=== PATIENT | male | born 1930 | race Caucasian/White ===

== ENCOUNTER 2017-05-23 02:36 | Inpatient (IN) | payer MEDICARE ==
[~2017-05-23] VITALS: Ht 175.3 cm; Wt 70.2 kg
[2017-05-23] VITALS (12 sets, daily range): BP systolic 145–224; BP diastolic 74–116; PULSE 67–92; RESP 16–19; TEMP 97.6–99.3; O2SAT 94–96
[~2017-05-23 02:36] MED LIST: BETHAMETHASONE; HYCOS PO; TAMS0.4C67 PO; breathing tx
[2017-05-23] MEDS ORDERED: METO25TA3 PO (03:18)
[2017-05-23] MEDS ORDERED: PHEN1SPR2 PO (03:18)
[2017-05-23] MEDS ORDERED: TAMS0.4C4 PO (03:18)
[2017-05-23] MEDS ORDERED: ASPI81CH6 CHEW (03:18)
[2017-05-23] MEDS ORDERED: PRED1 PO (03:18)
[2017-05-23] MEDS ORDERED: FINA5TAB2 PO (03:18)
[2017-05-23] MEDS ORDERED: TYLETAB34 PO (03:18)
[2017-05-23] MEDS ORDERED: FLUN25I EACH NARE (03:18)
[2017-05-23] MEDS ORDERED: SODIUM CHLORIDE 0.9% FLUSH 10 ML FLUSH IVF PRN (03:45)
[2017-05-23] MEDS ORDERED: LABETALOL HCL 100 MG/20 ML VIAL IV PUSH ONE (04:00)
[2017-05-23 04:11] LABS: BASOPHIL # 0.1 TH/MM3 (0-0.2); BASOPHIL % 0.7 % (0.0-2.0); EOSINOPHIL # 0.5 TH/MM3 (0-0.4); EOSINOPHIL % 5.5 % (0.0-4.0); HEMATOCRIT 41.2 % (39.0-51.0); HEMOGLOBIN 13.7 GM/DL (13.0-17.0); LYMPH % 16.6 % (9.0-44.0); LYMPHOCYTE # 1.5 TH/MM3 (1.0-4.8); MEAN CORPUSCULAR HEMOGLOBIN 28.3 PG (27.0-34.0); MEAN CORPUSCULAR HGB CONC 33.3 % (32.0-36.0); MEAN PLATELET VOLUME 7.1 FL (7.0-11.0); MONO % 8.5 % (0.0-8.0); MONOCYTE # 0.7 TH/MM3 (0-0.9); NEUT % 68.7 % (16.0-70.0); PLATELET COUNT 231 TH/MM3 (150-450); RED BLOOD COUNT 4.84 MIL/MM3 (4.50-5.90); RED CELL DISTRIBUTION WIDTH 16.1 % (11.6-17.2); WHITE BLOOD COUNT 8.7 TH/MM3 (4.0-11.0)
[2017-05-23 04:23] LABS: BICARBONATE 31.3 MEQ/L (21.0-32.0); BLOOD UREA NITROGEN 13 MG/DL (7-18); CALCIUM 8.4 MG/DL (8.5-10.1); CHLORIDE 104 MEQ/L (98-107); CREATININE 1.02 MG/DL (0.60-1.30); GLOMERULAR FILTRATION RATE 69 ML/MIN (>89); GLUCOSE,RANDOM 109 MG/DL (74-106); SODIUM (NA) 138 MEQ/L (136-145)
[2017-05-23 04:25] LABS: INTERNATIONAL NORMALIZED RATIO 1.1 RATIO; PROTHROMBIN TIME - PATIENT 10.7 SEC (9.8-11.6)
[2017-05-23 04:26] LABS: TROPONIN I LESS THAN 0.02 NG/ML (0.02-0.05)
--- NOTE | 2017-05-23 04:35 | PD ---
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 Patient was accepted in transfer of care by neurologist Dr. Vitale who recommended patient come to this facility to have ophthalmologic evaluation prior to onset of any anticoagulation therapy. Patient presents with symptoms beginning since Saturday morning. Patient here states that his initial visual disturbance has essentially resolved and his vision is back to his baseline although had. Vision loss like a shade on Saturday. Patient was seen by evp operations and was being referred to a retinal specialist when he was referred to the emergency department for further evaluation of symptoms. Patient complained of headache and dizziness. Patient with prior history of CVA. Patient with hypertension and dyslipidemia as well as hypothyroidism. Patient on no blood thinning agents except and aspirin. Patient is not taking his blood pressure medication for 2 days. Patient denies other concerns or complaints. PFSH Past Medical History Narrative Medical Polymyalgia rheumatica hypertension CVA; nursing notes reviewed Heart Rhythm Problems: No Cancer: Yes (SQUAMOUS CELL CA SCALP) Cardiac Catheterization: No Cardiovascular Problems: No (DENIES) High Cholesterol: No Congestive Heart Failure: No Cerebrovascular Accident: Yes Diabetes: No Diminished Hearing: No Glaucoma: No Genitourinary: Yes (BENIGN PROSTATIC HYPERTROPHY - DUE FOR SURGERY IN APRIL) Hepatitis: No Hiatal Hernia: No Hypertension: No Medical other: Yes (ARTHRITIS; SEVERE COUGH) Respiratory: Yes (abscess in lung) Thyroid Disease: No Tetanus Vaccination: Unknown Influenza Vaccination: No Past Surgical History Appendectomy: Yes Cardiac Surgery: Yes (AORTA REPAIR) Coronary Artery Bypass Graft: No Genitourinary Surgery: Yes (PROSTATE BIOPSY X 3) Thoracic Surgery: Yes (BRONCHOSCOPY) Social History Alcohol Use: No Tobacco Use: No Substance Use: No Allergies-Medications (Allergen,Severity, Reaction): Coded Allergies: levofloxacin (Unverified Adverse Reaction, Severe, 05/23/17) States not allergic to it but his joints tightened up on him so doesnt want to take again Reported Meds & Prescriptions Reported Meds & Active Scripts Active Reported Metoprolol Tartrate 25 Mg Tab 25 Mg PO BID Finasteride 5 Mg Tab 1 Mg PO DAILY Do not crush. Prednisone 1 Mg Tab 1 Mg PO BID Aspirin Low Dose (Aspirin) 81 Mg Chew 81 Mg CHEW DAILY Tylenol-Codeine #3 (Acetaminophen-Codeine) 300-30 mg Tab 1 Tab PO Q4H PRN Chloraseptic Max Alto (Phenol/Glycerin) 1.5 %-33 % Alto 2 Alto PO Q2HR PRN Flunisolide Nasal Alto (Flunisolide) 0.025 Mg/Act Naspr 2 Alto EACH NARE BID Tamsulosin (Tamsulosin HCl) 0.4 Mg Cap 0.4 Mg PO DAILY Review of Systems Except as stated in HPI: all other systems reviewed are Neg General / Constitutional: No: Fever, Chills Eyes: Positive: Visual changes, No: Diploplia HENT: Positive: Headaches, Vertigo, No: Neck Pain Cardiovascular: No: Chest Pain or Discomfort Respiratory: No: Shortness of Breath Gastrointestinal: No: Nausea, Vomiting, Abdominal Pain Musculoskeletal: No: Myalgias, Arthralgias, Weakness Skin: No Rash Neurologic: Positive: Dizziness, Headache, No: Weakness, Syncope, Focal Abnormalities, Coordination Problem, Ataxia, Change in Mentation, Slurred Speech , Paresthesia, Seizures Psychiatric: No: Anxiety Endocrine: No: Heat Intolerance Hematologic/Lymphatic: No: Easy Bruising Physical Exam Narrative GENERAL: Well-developed well-nourished male no acute distress or respiratory distress SKIN: Warm and dry. HEAD: Atraumatic. Normocephalic. EYES: Pupils equal and round. No scleral icterus. No injection or drainage. ENT: No nasal bleeding or discharge. Mucous membranes pink and moist. NECK: Trachea midline. No JVD. CARDIOVASCULAR: Regular rate and rhythm. RESPIRATORY: No accessory muscle use. Clear to auscultation. Breath sounds equal bilaterally. GASTROINTESTINAL: Abdomen soft, non-tender, nondistended. Hepatic and splenic margins not palpable. MUSCULOSKELETAL: Extremities without clubbing, cyanosis, or edema. No obvious deformities. NEUROLOGICAL: Awake and alert. No obvious cranial nerve deficits. Motor grossly within normal limits. Five out of 5 muscle strength in the arms and legs. No limb ataxia no pronator drift. Normal speech. PSYCHIATRIC: Appropriate mood and affect; insight and judgment normal. Data Data Last Documented VS Vital Signs Date Time Temp Pulse Resp B/P (MAP) Pulse Ox O2 Delivery O2 Flow Rate FiO2 2/8/18 04:00 84 16 218/99 (138) 95 Room Air 05/23/17 02:56 98.9 Orders Orders Electrocardiogram (05/23/17 03:41) Prothrombin Time / Inr (Pt) (05/23/17 03:41) Act Partial Throm Time (Ptt) (05/23/17 03:41) Complete Blood Count With Diff (05/23/17 03:41) Basic Metabolic Panel (Bmp) (05/23/17 03:41) Troponin I (05/23/17 03:41) Ua Includes Microscopic (05/23/17 03:41) Ecg Monitoring (05/23/17 03:41) Iv Access Insert/Monitor (05/23/17 03:41) Oximetry (05/23/17 03:41) Sodium Chloride 0.9% Flush (Ns Flush) (05/23/17 03:45) Labetalol Inj (Trandate Inj) (05/23/17 04:00) Admit Order (Ed Use Only) (05/23/17 ) Court Stenographer / Telemetry PIERCE.Q8H (05/23/17 03:59) Diet Heart Healthy (05/23/17 Breakfast) Activity Oob With Assistance (05/23/17 03:59) Notify Dr: Other (05/23/17 03:59) Labs Laboratory Tests Test 05/23/17 03:55 White Blood Count 8.7 TH/MM3 Red Blood Count 4.84 MIL/MM3 Hemoglobin 13.7 GM/DL Hematocrit 41.2 % Mean Corpuscular Volume 85.0 FL Mean Corpuscular Hemoglobin 28.3 PG Mean Corpuscular Hemoglobin Concent 33.3 % Red Cell Distribution Width 16.1 % Platelet Count 231 TH/MM3 Mean Platelet Volume 7.1 FL Neutrophils (%) (Auto) 68.7 % Lymphocytes (%) (Auto) 16.6 % Monocytes (%) (Auto) 8.5 % Eosinophils (%) (Auto) 5.5 % Basophils (%) (Auto) 0.7 % Neutrophils # (Auto) 6.0 TH/MM3 Lymphocytes # (Auto) 1.5 TH/MM3 Monocytes # (Auto) 0.7 TH/MM3 Eosinophils # (Auto) 0.5 TH/MM3 Basophils # (Auto) 0.1 TH/MM3 CBC Comment DIFF FINAL Differential Comment Prothrombin Time 10.7 SEC Prothromb Time International Ratio 1.1 RATIO Activated Partial Thromboplast Time 26.8 SEC Blood Urea Nitrogen 13 MG/DL Creatinine 1.02 MG/DL Random Glucose 109 MG/DL Calcium Level 8.4 MG/DL Sodium Level 138 MEQ/L Potassium Level 3.8 MEQ/L Chloride Level 104 MEQ/L Carbon Dioxide Level 31.3 MEQ/L Anion Gap 3 MEQ/L Estimat Glomerular Filtration Rate 69 ML/MIN Troponin I LESS THAN 0.02 NG/ML MDM Medical Decision Making Medical Screen Exam Complete: Yes Emergency Medical Condition: Yes Medical Record Reviewed: Yes Interpretation(s) EKG normal sinus rhythm rate 73 incomplete right bundle branch block no acute ST elevation injury pattern or ectopy noted Differential Diagnosis CVA, carotid stenosis, retinal hemorrhage, uncontrolled hypertension Narrative Course Review of medical records indicates the patient underwent CT brain noncontrast with impression areas of lucency in the bilateral occipital lobes left greater than right likely subacute infarcts in the DOPE EDGER distribution no hemorrhage or mass-effect remote right parietal cortical infarct remote right cerebellar infarct no shift or hydrocephalus this is from 9:40 PM 05/22/17 from [facility] Patient's case was discussed with on-call neurologist who recommended a.m. ophthalmology consult neurology consult MRI and MRA of the brain and carotids as well as blood pressure control to keep systolic pressure approximately 1 80 mmHg no anticoagulation administered until patient evaluated by evp operations for possible retinal hemorrhage and admitted to medicine; patient's case was discussed with on-call [facility] of healthcare physician Dr. Greer and neurologist Dr. Vitale's recommendation for ophthalmology consult neurology consult MRI and MRI of the brain and carotids as well as blood pressure control and no anticoagulation until patient has been evaluated by evp operations this information was shared to Dr. Greer the admitting physician who requests patient be admitted to Dr. Clark and reports that he will enter the orders as recommended by neurologist. Physician Communication Physician Communication Patient's case discussed with on-call neurologist Dr. Vitale who requests patient be admitted to medicine service with consult to neurology and ophthalmology with MR studies in the a.m. no anticoagulation until patient is evaluated by ophthalmology; patient's case discussed with on-call physician Dr. Greer who requests patient to be admitted to Dr. Clark is aware of Dr. Vitale/neurologist recommendations for ongoing management of the patient at time of admission --requested ED to place transition orders and will order all further patient management orders/consults. Diagnosis Primary Impression: CVA (cerebral vascular accident) Additional Impressions: Retinal hemorrhage Hypertension Admitting Information Admitting Physician Requests: Admit Olesya Rockwell MD May 23, 2017 04:35
[2017-05-23] MEDS: ACETAMINOPHEN 325 MG TAB PO PRN (08:26)
[2017-05-23] MEDS ORDERED: PRED2.5T PO (08:58)
--- NOTE | 2017-05-23 09:08 | HHI.HP ---
HPI Service [facility] Hospitalists Primary Care Physician Mir Rivero MD Admission Diagnosis CVA; retinal hemorhage; htn Chief Complaint: visual loss/headache. Travel History International Travel<30 Days: No Contact w/Intl Traveler <30 Da: No Traveled to Known Affected Are: No History of Present Illness Pt is 86 yo with hx thoracic aortic dissection, htn, bph who presented to [place] ED and transferred to [facility]. Pt and family say he has had blurry/"scummy" vision bilaterally for months but yesterday morning he was unable to see much as both eyes appeared to be in a "fog". He went to [facility] eye doctor in [place]. They usually see Dr Fritz but saw who they think was Dr Landers. The pt/family say she felt he had a left retinal hemorrhage and was referred to see Dr Dyer. But he was having severe h/a and seen in urgent care who referred him to ED. In [place] after CT head there was a concern of subacute cva in posterior cerebral art. Due to the possible retinal hemorrhage he was accepted in transfer here by neurology with request of optho consult. Pt still has headache but vision is much improved. no focal ext weekness. Says he had a cva 3 yrs ago unclear mechanism. takes 1/ 2 325mg asa daily. Review of Systems Other headache visual disturbance Past Family Social History Past Medical History thoracic aortic dissection. open repair Vigneshll 2012 acute cva 2012 mediastinoscopy/bronch 2007. severe pneumonia 6weeks abx. bph htn inguinal hernia surgery skin ca removal appe PMR chronic prednisone. Reported Medications Prednisone 2.5 Mg Tab 2.5 Mg PO DAILY Metoprolol Tartrate 25 Mg Tab 50 Mg PO BID Finasteride 5 Mg Tab 1 Mg PO DAILY Do not crush. Tamsulosin (Tamsulosin HCl) 0.4 Mg Cap 0.4 Mg PO DAILY asa 325mg 1/2 daily. Allergies: Coded Allergies: levofloxacin (Unverified Adverse Reaction, Severe, 05/23/17) States not allergic to it but his joints tightened up on him so doesnt want to take again Family History nc Social History quit tob 1959 Physical Exam Vital Signs nad pleasant oriented cn 2-12 grossly intact heart reg no carotid bruit lung cta abd s/nt ext no edema Vital Signs Date Time Temp Pulse Resp B/P (MAP) Pulse Ox O2 Delivery O2 Flow Rate FiO2 05/23/17 06:40 05/23/17 05:00 84 16 165/74 (104) 96 Room Air 05/23/17 04:30 74 16 182/88 (119) 95 Room Air 05/23/17 04:15 84 16 171/89 (116) 95 Room Air 05/23/17 04:00 84 16 218/99 (138) 95 Room Air 05/23/17 03:30 85 16 221/112 (148) 95 Room Air 05/23/17 03:01 224/102 (142) 213/96 (135) 05/23/17 03:00 96 Room Air 05/23/17 02:56 98.9 90 16 224/102 (142) 95 Laboratory Laboratory Tests Test 05/23/17 03:55 White Blood Count 8.7 Red Blood Count 4.84 Hemoglobin 13.7 Hematocrit 41.2 Mean Corpuscular Volume 85.0 Mean Corpuscular Hemoglobin 28.3 Mean Corpuscular Hemoglobin Concent 33.3 Red Cell Distribution Width 16.1 Platelet Count 231 Mean Platelet Volume 7.1 Neutrophils (%) (Auto) 68.7 Lymphocytes (%) (Auto) 16.6 Monocytes (%) (Auto) 8.5 Eosinophils (%) (Auto) 5.5 Basophils (%) (Auto) 0.7 Neutrophils # (Auto) 6.0 Lymphocytes # (Auto) 1.5 Monocytes # (Auto) 0.7 Eosinophils # (Auto) 0.5 Basophils # (Auto) 0.1 CBC Comment DIFF FINAL Differential Comment Prothrombin Time 10.7 Prothromb Time International Ratio 1.1 Activated Partial Thromboplast Time 26.8 Blood Urea Nitrogen 13 Creatinine 1.02 Random Glucose 109 Calcium Level 8.4 Sodium Level 138 Potassium Level 3.8 Chloride Level 104 Carbon Dioxide Level 31.3 Anion Gap 3 Estimat Glomerular Filtration Rate 69 Troponin I LESS THAN 0.02 Result Diagram: 05/23/1735405/23/17354 Caprini VTE Risk Assessment Caprini VTE Risk Assessment: Mod/High Risk (score >= 2) Caprini Risk Assessment Model Point Value = 1 Point Value = 2 Point Value = 3 Point Value = 5 Age 41-60 Minor surgery BMI > 25 kg/m2 Swollen legs Varicose veins or History of unexplained or recurrent spontaneous Oral contraceptives or hormone replacement Sepsis (< 1 month) Serious lung disease, including pneumonia (< 1 month) Abnormal pulmonary function Acute myocardial infarction Congestive heart failure (< 1 month) History of inflammatory bowel disease Medical patient at bed rest Age 61-74 Arthroscopic surgery Major open surgery (> 45 min) Laparoscopic surgery (> 45 min) Malignancy Confined to bed (> 72 hours) Immobilizing plaster cast Central venous access Age >= 75 History of VTE Family history of VTE Factor V Leiden Prothrombin [id number] Lupus anticoagulant Anticardiolipin antibodies Elevated serum homocysteine Heparin-induced thrombocytopenia Other congenital or acquired thrombophilia Stroke (< 1 month) Elective arthroplasty Hip, pelvis, or leg fracture Acute spinal cord injury (< 1 month) Prophylaxis Regimen Total Risk Factor Score Risk Level Prophylaxis Regimen 0-1 Low Early ambulation 2 Moderate Order ONE of the following: *Sequential Compression Device (SCD) *Heparin 5000 units SQ BID 3-4 Higher Order ONE of the following medications: *Heparin 5000 units SQ TID *Enoxaparin/Lovenox 40 mg SQ daily (WT < 150 kg, CrCl > 30 mL/min) *Enoxaparin/Lovenox 30 mg SQ daily (WT < 150 kg, CrCl > 10-29 mL/min) *Enoxaparin/Lovenox 30 mg SQ BID (WT < 150 kg, CrCl > 30 mL/min) AND/OR *Sequential Compression Device (SCD) 5 or more Highest Order ONE of the following medications: *Heparin 5000 units SQ TID (Preferred with Epidurals) *Enoxaparin/Lovenox 40 mg SQ daily (WT < 150 kg, CrCl > 30 mL/min) *Enoxaparin/Lovenox 30 mg SQ daily (WT < 150 kg, CrCl > 10-29 mL/min) *Enoxaparin/Lovenox 30 mg SQ BID (WT < 150 kg, CrCl > 30 mL/min) AND *Sequential Compression Device (SCD) Assessment and Plan Problem List: (1) CVA (cerebral vascular accident) ICD Codes: I63.9 - Cerebral infarction, unspecified Status: Acute Plan: 1. Presents with severe h/a and bilateral visual disturbances for weeks. Initial eval outside hospital concerned for subacute post cerebral art cva and retinal hemorrhage. 2. htn 3. Aortic dissection/repair in the past 4. bph 5. PMR on chronic steroids Pt was transferred/accepted by neurology from [place] ED consult neurology and ophthal. mri/a brain/carotids telemetry. echo dvt prophylaxis antiplts/anticoagulation per neurology. pt eval (2) Retinal hemorrhage ICD Codes: H35.60 - Retinal hemorrhage, unspecified eye Status: Acute (3) Hypertension ICD Codes: I10 - Essential (primary) hypertension Status: Acute Physician Certification 2 Midnight Certification Type: Admission for Inpatient Services Order for Inpatient Services 3The services are ordered in accordance with Medicare regulations or non- Medicare payer requirements, as applicable. In the case of services not specified as inpatient-only, they are appropriately provided as inpatient services in accordance with the 2-midnight benchmark. Estimated LOS (days): 3 3 days is the estimated time the patient will need to remain in the hospital, assuming treatment plan goals are met and no additional complications. Post-Hospital Plan: Home Gordo Clark MD May 23, 2017 09:08
[2017-05-23] MEDS ORDERED: PILL SPLITTER OTHER PRN (09:30)
[2017-05-23 09:53] LABS: BILIRUBIN, URINE NEG (NEG); BLOOD, URINE NEG (NEG); GLUCOSE,URINE NEG (NEG); KETONE, URINE NEG (NEG); MUCUS URINE FEW /lpf (OCC); NITRITE,URINE NEG (NEG); URINE COLOR YELLOW (YELLW/STRAW); URINE LEUKOCYTE ESTERASE NEG (NEG)
[2017-05-23] MEDS ORDERED: ACETAMINOPHEN/CODEINE 300 MG/30 MG TAB PO PRN (10:30)
[2017-05-23] MEDS ORDERED: LORazepam 0.5 MG TAB PO ONE (10:30)
[2017-05-23] MEDS ORDERED: METOPROLOL TARTRATE 50 MG TAB PO ONE (10:30)
[2017-05-23] MEDS: predniSONE 5 MG TAB PO SCH (10:53)
[2017-05-23] MEDS: TAMSULOSIN HCL 0.4 MG CAP PO SCH (10:53)
[2017-05-23] MEDS: FINASTERIDE 5 MG TAB PO SCH (10:53)
[2017-05-23] MEDS ORDERED: GADODIAMIDE PF 287 MG/ML 20 ML VIAL (for RAD MRI) IVCONTRAST ONE (12:31)
--- NOTE | 2017-05-23 12:34 | RADRPT ---
EXAM DATE/TIME: 05/23/2017 12:05 [facility] COMPARISON: No previous studies available for comparison. INDICATIONS : Stroke. Headache and blurred vision. MEDICAL HISTORY : Hypertension. SURGICAL HISTORY : Abdominal aortic aneurysm repair. Hernia repair. ENCOUNTER: Initial ACUITY: 2 day PAIN SCORE: 6/10 LOCATION: Head. Please note a normal MRA of the brain does not entirely exclude the possibility of a small aneurysm, nor the possibility of distal intracranial vessel disease. TECHNIQUE: 3D time of flight MRA was performed. Source images, multiplanar STS MIP, and 3D volume MIP reconstru ctions were reviewed. FINDINGS: There is excellent visualization of the major intracranial arteries out to the second-order branch ve ssels. There is no evidence for aneurysm, vessel truncation or stenosis, and no evidence for vascula r malformation. CONCLUSION: Normal examination. Jay Disla MD on May 23, 2017 at 12:29 Board Certified Radiologist. This report was verified electronically.
--- NOTE | 2017-05-23 12:44 | RADRPT ---
EXAM DATE/TIME: 05/23/2017 12:05 [facility] COMPARISON: MRA BRAIN W/O CONTRAST, May 23, 2017, 12:05. INDICATIONS : CVA. Blurred vision and headache. MEDICAL HISTORY : Hypertension. SURGICAL HISTORY : Abdominal aortic aneurysm repair. Hernia repair. ENCOUNTER: Initial ACUITY: 1 day PAIN SCORE: 5/10 LOCATION: Head. TECHNIQUE: Multiplanar, multisequence MRI of the brain was performed without contrast. FINDINGS: There are patchy areas of restricted diffusion involving the posterior left temporal and left occipit al region consistent with subacute infarctions. There are small areas of encephalomalacia in the high convexity right parietal region, in the right occipital region and in the right cerebellar hemispher e consistent with old insults. There is patchy mild T2 prolongation in the periventricular and subcor tical white matter. No evidence of intracranial hemorrhage or mass. There is mucosal sinus disease pr esent in ethmoid sinuses. CONCLUSION: Areas of subacute left SERVICE STATION [employer]END[employer] territory infarction. Old infarctions elsewhere. Jay Disla MD on May 23, 2017 at 12:37 Board Certified Radiologist. This report was verified electronically.
--- NOTE | 2017-05-23 12:48 | RADRPT ---
EXAM DATE/TIME: 05/23/2017 12:05 [facility] COMPARISON: No previous studies available for comparison. INDICATIONS : Stroke. Blurred vision and headache. CONTRAST: 20 cc Omniscan (gadodiamide) IV MEDICAL HISTORY : Hypertension. SURGICAL HISTORY : Abdominal aortic aneurysm repair. Hernia repair. ENCOUNTER: Initial ACUITY: 2 day PAIN SCORE: 5/10 LOCATION: Head. Percent stenosis is calculated using the diameter of the stenotic region over the diameter of the nor mal distal internal carotid artery. TECHNIQUE: Bolus infused MRA of the extracranial circulation was performed using a neurovascular coil. Post pro cessing was performed including rotating subvolume maximum intensity projections of each carotid lorri ry, rotating full volume maximum intensity projections of both carotid arteries, sagittal and coronal sliding thin slab reformations of each carotid artery, and left oblique sliding thin slab reformatio n through the aortic arch to include the origin of the arch branch vessels. FINDINGS: AORTIC ARCH: There is a three vessel origin of the great vessels from the aorta. No evidence of ostial narrowing. RIGHT CAROTID: The common carotid artery is intact. The carotid bulb has a normal configuration without ulceration or narrowing. The internal carotid artery lumen is smooth without stenosis. The external carotid ar eileen is intact. LEFT CAROTID: The common carotid artery is intact. The carotid bulb has a normal configuration without ulceration or narrowing. The internal carotid artery lumen is smooth without stenosis. The external carotid ar eileen is intact. VERTEBRALS: The vertebral arteries have a symmetric diameter. No stenotic lesions are seen. CONCLUSION: Normal examination. Jay Disla MD on May 23, 2017 at 12:44 Board Certified Radiologist. This report was verified electronically.
[2017-05-23] MEDS ORDERED: cloNIDine HCL 0.1 MG TAB PO PRN (13:15)
[2017-05-23] MEDS ORDERED: ENALAPRILAT 1.25 MG/ML VIAL IV PUSH PRN (16:30)
--- NOTE | 2017-05-23 18:01 | ECHRPT ---
Indication: CVA/TIA CONCLUSIONS The left ventricular systolic function is low normal with an estimated ejection fraction in the rang e of 50- 55%. Wall thickness is measured at the upper limits of normal. Normal left ventricular size. The left atrial size is mildly dilated. Mild aortic valve regurgitation. There is mild tricuspid valve regurgitation. The estimated pulmonary arterial pressure is 38.9 mmHg. BP: 165 / 74 HR: 84 Rhythm: Sinus MEASUREMENTS (Male / Female) Normal Values Technical Quality:Fair 2D ECHO LV Diastolic Diameter PLAX 5.0 cm 4.2 - 5.9 / 3.9 - 5.3 cm LV Systolic Diameter PLAX 3.9 cm IVS Diastolic Thickness 1.1 cm 0.6 - 1.0 / 0.6 - 0.9 cm LVPW Diastolic Thickness 1.1 cm 0.6 - 1.0 / 0.6 - 0.9 cm LV Relative Wall Thickness 0.4 LVOT Diameter 2.3 cm M-MODE Aortic Root Diameter MM 3.4 cm LA Systolic Diameter MM 4.3 cm LA Ao Ratio MM 1.3 AV Cusp Separation MM 2.3 cm DOPPLER AV Peak Velocity 115.0 cm/s AV Peak Gradient 5.3 mmHg AI Peak Velocity 291.5 cm/s AI Peak Gradient 34.0 mmHg AI Pressure Half Time 820.0 ms LVOT Peak Velocity 97.7 cm/s LVOT Peak Gradient 3.8 mmHg AV Area Cont Eq pk 3.5 cm MR Peak Velocity 490.0 cm/s MR Peak Gradient 96.0 mmHg Mitral E Point Velocity 53.8 cm/s Mitral A Point Velocity 49.9 cm/s Mitral E to A Ratio 1.1 LV E' Lateral Velocity 8.8 cm/s Mitral E to LV E' Lateral Ratio 6.1 LV E' Septal Velocity 8.1 cm/s Mitral E to LV E' Septal Ratio 6.7 TR Peak Velocity 269.0 cm/s TR Peak Gradient 28.9 mmHg Right Atrial Pressure 10.0 mmHg Pulmonary Artery Systolic Pressu 38.9 mmHg Right Ventricular Systolic Press 38.9 mmHg PV Peak Velocity 143.0 cm/s PV Peak Gradient 8.2 mmHg FINDINGS LEFT VENTRICLE The left ventricular systolic function is low normal with an estimated ejection fraction in the rang e of 50- 55%. Wall thickness is measured at the upper limits of normal. Normal left ventricular size. RIGHT VENTRICLE Normal right ventricular size and systolic function. LEFT ATRIUM The left atrial size is mildly dilated. RIGHT ATRIUM The right atrial size is normal. ATRIAL SEPTUM Normal atrial septal thickness without atrial level shunting by limited color doppler interrogation. AORTA The aortic root and proximal ascending aorta are normal in size on limited imaging. MITRAL VALVE Structurally normal mitral valve. No mitral valve stenosis or regurgitation. AORTIC VALVE Mild aortic valve regurgitation. TRICUSPID VALVE There is mild tricuspid valve regurgitation. The estimated pulmonary arterial pressure is 38.9 mmHg. PULMONARY VALVE No pulmonary valve regurgitation or stenosis. VESSELS The inferior vena cava is normal in size. PERICARDIUM No pericardial effusion. Maurilio Aguiar MD, FACC (Electronically Signed) Final Date:23 May 2017 18:00
--- NOTE | 2017-05-23 20:27 | EKG ---
Date Performed: 05/23/2017 Time Performed: 04:04:48 PTAGE: 86 years EKG: Sinus rhythm INCOMPLETE RIGHT BUNDLE BRANCH BLOCK BORDERLINE ECG PREVIOUS TRACING : 04/22/2012 04.06 Since the prior tracing, there has been no significant bell DOCTOR: Guanakito Rahman Interpretating Date/Time 05/23/2017 20:21:06
[2017-05-23] MEDS: METOPROLOL TARTRATE 50 MG TAB PO SCH (21:05)
[2017-05-24] VITALS: BP 153/70; PULSE 68; PULSE 71; RESP 20; TEMP 97.6; O2SAT 96
[2017-05-24 03:32] VITALS: BP 140/73; PULSE 75; RESP 18; TEMP 98.1; O2SAT 94
[2017-05-24] MEDS: ACETAMINOPHEN 325 MG TAB PO PRN (03:35)
[2017-05-24 08:00] VITALS: BP 169/97; PULSE 58; PULSE 73; RESP 20; TEMP 97.5; O2SAT 94
--- NOTE | 2017-05-24 08:18 | MB ---
cc: MODESTA WOODS M.D. DATE OF CONSULTATION 05/23/2017 REASON FOR CONSULTATION Stroke HISTORY OF PRESENT ILLNESS Mr. Parra is an 86-year man who noted difficulty with vision yesterday in both eyes he had blurred vision. He states actually two days ago he began having symptoms such as this. He saw ophthalmology as an outpatient and was found to have a retinal hemorrhage on the left side. He was hospitalized at [facility] yesterday and was in the ER because of increasing blurred vision and on CT scan thought he had an occipital stroke and therefore transferred to [facility] for neurological evaluation. PAST MEDICAL HISTORY He has a history of: 1. 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 A stroke in 2012. 3. Mediastinoscopy and bronchoscopy 2007 4. Pneumonia 5. BPH 6. Hypertension 7. Inguinal hernia surgery 8. Skin cancer removal 9. Appendectomy 10. PMR for which he takes prednisone MEDICINES AT HOME 1. Prednisone 2. Aspirin half a tablet a day 3. Tamsulosin 4. Finasteride 5. Metoprolol NEUROLOGIC EXAMINATION Blood pressure is 198/116, pulse is 84, respiratory rate is 18, temperature 97 degrees. Higher cortical functions are normal. Cranial nerve examination, he has difficulty seeing off to the right side, right hemianopsia. Pupils are equal and reactive. The extraocular movements are intact. There is no facial droop. Motor exam 5/5 strength. There is no drift. Reflexes symmetric. MRI of the brain shows a stroke in the left [employer] territory which appears to be subacute. He has areas of old stroke in the right parietal area, right occipital area and diffusion images show diffusion restriction left temporal and left occipital region consistent with acute showed no hemorrhage. MRA of the head is normal. MRA of the neck is normal. LABORATORY DATA White count is 8700, hemoglobin 13.7, hematocrit 41.2%, platelet count 231,000. Sodium is 138, potassium 3.8, chloride 104, CO2 31, BUN is 13, creatinine 1.92, GFR 69, PT 10.7, INR 1.1, APTT was 6.8. IMPRESSION 1. Left [employer] stroke. 2. Possible retinal hemorrhage by ophthalmologic exam. RECOMMENDATIONS Would hold off any antiplatelets presently until ophthalmology sees the patient. Once he is cleared, consider Plavix 75 mg daily if okay with ophthalmology. Also check echocardiogram. Monitor cardiac telemetry, rule out atrial fibrillation. We will also check a lipid panel. MD ANTONELLA Bo/KAROLINA /4:45 PM /7:55 AM
[2017-05-24] MEDS: predniSONE 5 MG TAB PO SCH (08:41)
[2017-05-24] MEDS: FINASTERIDE 5 MG TAB PO SCH (08:42)
[2017-05-24] MEDS: METOPROLOL TARTRATE 50 MG TAB PO SCH (08:42)
[2017-05-24] MEDS: TAMSULOSIN HCL 0.4 MG CAP PO SCH (08:42)
--- NOTE | 2017-05-24 09:10 | HHI.PR ---
Subjective Remarks doing much better. ambulating. Objective Vitals heart reg lung cta abd s/nt ext no edema Vital Signs Date Time Temp Pulse Resp B/P (MAP) Pulse Ox O2 Delivery O2 Flow Rate FiO2 05/24/17 08:00 97.5 73 20 169/97 (121) 94 05/24/17 07:15 Room Air 05/24/17 03:32 98.1 75 18 140/73 (95) 94 05/24/17 00:00 71 05/24/17 00:00 Room Air 05/24/17 00:00 97.6 68 20 153/70 (97) 96 05/23/17 20:00 77 05/23/17 20:00 99.0 80 19 163/79 (107) 94 05/23/17 20:00 Room Air 05/23/17 16:15 67 145/100 (115) 05/23/17 12:00 97.6 84 18 198/116 (143) 94 Result Diagram: 05/23/17 0355 05/23/17 0355 A/P Problem List: (1) CVA (cerebral vascular accident) ICD Codes: I63.9 - Cerebral infarction, unspecified Status: Acute Plan: 1. Presents with severe h/a and bilateral visual disturbances for weeks. Initial eval outside hospital concerned for subacute post cerebral art cva and retinal hemorrhage. mri/a brain 05/23 confirms left post cerebral art cva. subacute 2. htn 3. Aortic dissection/repair in the past 4. bph 5. PMR on chronic steroids Pt was transferred/accepted by neurology from [place] ED consulted neurology and ophthal. echo noted. no thrombus cont tele to r/o arrhythmia await ophthal. reccs for neurology to decide if antiplts can be used. once decisions made on antiplt then pt will be discharged. addendum; Ophthal says resolving vitreous hemorrhage. ok for plavix spoke with Dr Saleem. echo ok and no afib on tele. he is ok with stop asa and start plavix and f/u office 2 weeks. pt and family ok with d/c now. f/u retina doc Dr Dyer. (2) Retinal hemorrhage ICD Codes: H35.60 - Retinal hemorrhage, unspecified eye Status: Acute (3) Hypertension ICD Codes: I10 - Essential (primary) hypertension Status: Acute Problem Qualifiers (1) CVA (cerebral vascular accident): Qualified Codes: I63.9 - Cerebral infarction, unspecified Gordo Clark MD May 24, 2017 09:10
--- NOTE | 2017-05-24 10:03 | PD.CONS ---
History of Present Illness Service Ophthalmology Consult Requested By Reason for Consult retinal hemorrhage left eye Primary Care Physician Mir Rivero MD Diagnoses: History of Present Illness 86 yo M with h/o thoracic aortic dissection, HTN who had decreased vision in his left eye 3 days ago. Patient is a poor historian - most of the history was taken from outside ophthalmology notes and hospital records. He woke up on 05/21 and couldn't see out of his left eye. 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 Sanchez. She did a dilated exam and saw vitreous/retinal hemorrhage of unknown etiology. Her plan was to send him to see a Retina specialist (Dr. Dyer) in the next 1-2 weeks to evaluate the hemorrhage in his left eye. Later that day he started to have a severe headache and went to an urgent care who sent him to [facility] ED. CT Head showed concern of subacute CVA in posterior cerebral artery. They transferred him to [facility] due to the concern for the CVA/retinal hemorrhage. Pt states the vision in his left eye has improved significantly. Past ocular history significant for cataract surgery OS, cataract OD, ocular hypertension. Past Family Social History Allergies: Coded Allergies: levofloxacin (Unverified Adverse Reaction, Severe, 05/23/17) States not allergic to it but his joints tightened up on him so doesnt want to take again Physical Exam Vital Signs Vital Signs Date Time Temp Pulse Resp B/P (MAP) Pulse Ox O2 Delivery O2 Flow Rate FiO2 05/24/17 08:00 97.5 73 20 169/97 (121) 94 05/24/17 07:15 Room Air 05/24/17 03:32 98.1 75 18 140/73 (95) 94 05/24/17 00:00 71 05/24/17 00:00 Room Air 05/24/17 00:00 97.6 68 20 153/70 (97) 96 05/23/17 20:00 77 05/23/17 20:00 99.0 80 19 163/79 (107) 94 05/23/17 20:00 Room Air 05/23/17 16:15 67 145/100 (115) 05/23/17 12:00 97.6 84 18 198/116 (143) 94 Physical Exam Va cc at near OD 20/70, OS 20/40 EOM full OU, no diplopia CVF full OU Pupils 2-1 no APD OU IOP normal to palpation OU Anterior exam OD - normal eyelid, C/S W&Q, K clear, AC deep, pupil round, +NS OS - normal eyelid, C/S W&Q, K clear, AC deep, pupil round, PCIOL Dilated exam OD - ON s/p/f, ves normal, vit clear, retina flat OS - ON s/p/f, ves normal, resolving vit heme, retina flat Result Diagram: 05/23/1735405/23/17354 Assessment and Plan Problem List: (1) Vitreous hemorrhage of left eye ICD Codes: H43.12 - Vitreous hemorrhage, left eye Plan: Resolving. Ok to discharge and follow up with Retina as scheduled (Dr. Dyer). No contraindications to starting Plavix. Chasity Russo MD May 24, 2017 10:03
[2017-05-24 12:00] VITALS: BP 117/64; PULSE 62; RESP 18; TEMP 97.5; O2SAT 92
[2017-05-24] MEDS ORDERED: PLAV75TA29 PO (13:48)
[2017-05-24] MEDS ORDERED: ASPI-516 CHEW (13:48)
--- NOTE | 2017-05-24 13:58 | HHI.DCPOC ---
Discharge Care Plan Diagnosis: (1) Retinal hemorrhage (2) Hypertension (3) CVA (cerebral vascular accident) (4) Vitreous hemorrhage of left eye Goals to Promote Your Health * To prevent worsening of your condition and complications * To maintain your health at the optimal level Directions to Meet Your Goals Take your medications as prescribed Follow your dietary instruction Follow activity as directed Keep your appointments as scheduled Take your immunizations and boosters as scheduled If your symptoms worsen call your PCP, if no PCP go to Urgent Care Center or Emergency Room Smoking is Dangerous to Your Health. Avoid second hand smoke Call the 24-hour hour crisis hotline for domestic abuse at Jillian Walden May 24, 2017 13:58
[2017-05-24 15:06] VITALS: PULSE 62
== END 2017-05-24 15:48 | disposition home or self-care (01) | DRG 66 ==
LOC: NEPC 02:36 → NEDA 04:00 → N04B 06:46
PROVIDERS: ADMIT Hospitalist; ATTEND Hospitalist
DX: I63.532 Cerebral infarction due to unspecified occlusion or stenosis of left posterior cerebral artery (principal); H35.62 Retinal hemorrhage, left eye; I45.10 Unspecified right bundle-branch block; I10 Essential (primary) hypertension; M35.3 Polymyalgia rheumatica; N40.0 Benign prostatic hyperplasia without lower urinary tract symptoms; Z86.73 Personal history of transient ischemic attack (TIA), and cerebral infarction without residual deficits; E78.5 Hyperlipidemia, unspecified; Z85.828 Personal history of other malignant neoplasm of skin; M19.90 Unspecified osteoarthritis, unspecified site; Z79.52 Long term (current) use of systemic steroids; H43.12 Vitreous hemorrhage, left eye; E03.9 Hypothyroidism, unspecified; Z86.79 Personal history of other diseases of the circulatory system
CPT/HCPCS: 70544; 70548; 70551; 80048; 81001; 84484; 85025; 85610; 85730; 93005; 93306; A9579; J7512